=== PATIENT | male | born 1940 | race Caucasian/White ===

== ENCOUNTER 2019-07-14 13:58 | Emergency (ER) | payer MEDICARE, OTHER, SELFPAY ==
--- NOTE | ~2019-07-14 | XR_ITS ---
EXAMINATION: XR chest 2V EXAM DATE: 07/14/2019 14:38 INDICATION: Cough, COPD, shortness of breath. TECHNIQUE: Frontal and lateral projections of the chest obtained and reviewed. There is no prior cy dy for comparison. FINDINGS: Mild hyperinflation. The lungs are clear. There are no pleural effusions. The cardiomedi astinal silhouette is within normal limits. There is no pneumothorax suspected. There is aortic art erial sclerosis. Patient has diffuse idiopathic skeletal hyperostosis (DISH). IMPRESSION: No acute cardiopulmonary findings. Reviewed, dictated and finalized at location A. [employer]
[2019-07-14 14:15] VITALS: BP 96/64; PULSE 111; RESP 16; TEMP 37.4; O2SAT 98
--- NOTE | 2019-07-14 14:53 | ED.URI ---
HPI - URI/Sore Throat General Chief Complaint: Upper Respiratory Infection Stated Complaint: possible flu back on air Time Seen by Provider: 07/14/19 14:45 Source: patient, family and RN notes reviewed Mode of arrival: ambulatory Limitations: no limitations History of Present Illness HPI Narrative: 79-year-old male accompanied by son in law who presents to [facility] care with complaints of fever, cough, body aches and has had 2-3 episodes of diarrhea. Patient has history of CHF and COPD and using oxygen per nasal cannula at 3 liter per minute with SAO2 98% on room air. Patient denies any nasal congestion or drainage, sore throat, admits to increase cough with some chest congestion, stated mild increase in his shortness of breath or any pain to his chest. He states that he has had some diarrhea and feels achy thinks may have flu, did get flu shot this year.Patient states that he has been doing some outpatient rehab for strengthening. He states that he was hospitalized in January for CHF, states he weighs daily and has not had any significant increase in his weight or increase in his peripheral edema with trace pedal edema note. MD elicited complaint: fever, cough and other (Body aches, diarrhea) Pertinent past history: COPD and other (CHF) Onset (ago): day(s) (1) Exacerbating factors: exertion and deep breaths Relieving factors: nothing Context: other (doing out patient rehab unsure if exposed to flu) Associated symptoms: fever, myalgias, cough, shortness of breath and diarrhea Treatments prior to arrival: none Related Data Home Medications Medication Instructions Recorded Confirmed Lantus U-100 Insulin 07/14/19 Trelegy Ellipta 07/14/19 albuterol sulfate 07/14/19 alprazolam 07/14/19 amiodarone 07/14/19 aspirin 07/14/19 citalopram 07/14/19 finasteride 07/14/19 furosemide 07/14/19 isosorbide mononitrate 07/14/19 melatonin 07/14/19 mirtazapine 07/14/19 montelukast 07/14/19 pantoprazole 07/14/19 polyethylene glycol 400 07/14/19 potassium chloride 07/14/19 spironolactone 07/14/19 tamsulosin 07/14/19 Allergies Allergy/AdvReac Type Severity Reaction Status Date / Time levofloxacin Allergy Severe Itching, Verified 07/14/19 14:37 RASH, ANAPHYLAXIS morphine Allergy Intermediate HALLUCINATI Verified 07/14/19 14:37 ONS moxifloxacin Allergy Intermediate RASH, Verified 07/14/19 14:37 ITCHING Sulfa (Sulfonamide Allergy Intermediate HIVES, RASH Verified 07/14/19 14:37 Antibiotics) lisinopril Allergy Unknown COUGH Verified 07/14/19 14:37 losartan Allergy Unknown PASSES OUT Verified 07/14/19 14:37 Review of Systems Review of Systems: Narrative: CONSTITUTIONAL: low grade fever, chills, or sweats. EYES: Denies visual changes, redness, or discharge. ENT: Denies rhinorrhea, congestion, sore throat, or otalgia. CARDIOVASCULAR: Denies chest pain, palpitations, or edema. RESPIRATORY: positive cough or dyspnea. GASTROINTESTINAL: Denies abdominal pain, nausea, vomiting, 3-4 loose stools GENITOURINARY: Denies dysuria or hematuria. SKIN: Denies rash or itching. MUSCULOSKELETAL: Denies back pain, joint pain, reports body aches NEUROLOGIC: Denies headache, numbness, or weakness. PSYCHIATRIC: history anxiety or depression. All systems reviewed & are unremarkable except as noted in HPI and below PMFSH Past Medical History Medical History (Updated 07/17/19 @ 10:05 by Meghan Godfrey NP) Afib CHF (congestive heart failure) COPD (chronic obstructive pulmonary disease) CVA (cerebral vascular accident) Diabetes GERD (gastroesophageal reflux disease) Hyperlipidemia Kidney disease Surgical History Surgical History (Updated 07/17/19 @ 10:05 by Meghan Godfrey NP) History of heart artery stent Social History Social History (Updated 07/17/19 @ 10:06 by Meghan Godfrey NP) Smoking status: Former smoker Smoking end date: 05/09/78 Living arrangements: with family Occupatio
== END 2019-07-14 15:35 | disposition home or self-care (01) ==
PROVIDERS: Emergency Provider Registered Nurse
DX: R19.7 Diarrhea, unspecified (principal); I11.0 Hypertensive heart disease with heart failure; I50.9 Heart failure, unspecified; J44.9 Chronic obstructive pulmonary disease, unspecified; J06.9 Acute upper respiratory infection, unspecified; N28.9 Disorder of kidney and ureter, unspecified; Z95.5 Presence of coronary angioplasty implant and graft; Z99.81 Dependence on supplemental oxygen
CPT/HCPCS: 71046; 87804; 99213; G0463